=== PATIENT | male | born 1990 | race Two or more races ===

== ENCOUNTER 2018-04-03 00:16 | Observation (INO) ==
[2018-04-03] MEDS ORDERED: Gadobutrol PF 10 MMOL/10 ML Vial (for RAD) IV.SIG ONE (06:30)
[2018-04-03] MEDS ORDERED: Bisacodyl 10 MG Supp RECTAL PRN (06:34)
[2018-04-03] MEDS ORDERED: Acetaminophen 325 MG Tablet PO PRN (06:34)
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
[2018-04-03] MEDS: Sod Chloride 0.9% Inj 1,000 ML IV.CONT SCH ×2 (09:39→20:18)
[2018-04-03 11:17] LABS: Troponin I 0.1 ng/mL (0.02-0.05)
[2018-04-03 11:28] LABS: CKMB Percent 0.3 % (0.0-4.0); Creatine Kinase MB 1.9 ng/mL (0.5-3.6)
[2018-04-03] MEDS ORDERED: ALPRAZolam 0.25 MG Tablet PO ONE (13:00)
[2018-04-03] MEDS: Escitalopram 10 MG Tablet PO SCH (13:17)
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
--- NOTE | 2018-04-03 14:05 | ECHRPT ---
Indication: HEART FAILURE CONCLUSIONS Normal left ventricular size. Wall thickness is normal. The left ventricular systolic function is normal with an estimated ejection fraction in the range of 55-60%. No regional wall motion abnormalities are present. There is trace tricuspid valve regurgitation. BP: / HR: Rhythm: Sinus MEASUREMENTS (Male / Female) Normal Values Technical Quality:Fair 2D ECHO LV Diastolic Diameter PLAX 5.2 cm 4.2 - 5.9 / 3.9 - 5.3 cm LV Systolic Diameter PLAX 3.2 cm IVS Diastolic Thickness 1.1 cm 0.6 - 1.0 / 0.6 - 0.9 cm LVPW Diastolic Thickness 1.1 cm 0.6 - 1.0 / 0.6 - 0.9 cm LV Relative Wall Thickness 0.4 RV Internal Dim ED PLAX 2.5 cm LVOT Diameter 2.2 cm Aortic Root Diameter 3.0 cm LA Systolic Diameter LX 3.6 cm 3.0 - 4.0 / 2.7 - 3.8 cm M-MODE AV Cusp Separation MM 2.3 cm DOPPLER AV Peak Velocity 128.0 cm/s AV Peak Gradient 6.6 mmHg AV Mean Gradient 4.0 mmHg AV Velocity Time Integral 22.5 cm LVOT Peak Velocity 91.0 cm/s LVOT Peak Gradient 3.3 mmHg LVOT Velocity Time Integral 17.1 cm AV Area Cont Eq vti 2.9 cm AV Area Cont Eq pk 2.7 cm Mitral E Point Velocity 120.0 cm/s Mitral A Point Velocity 56.3 cm/s Mitral E to A Ratio 2.1 LV E' Lateral Velocity 17.4 cm/s Mitral E to LV E' Lateral Ratio 6.9 LV E' Septal Velocity 10.6 cm/s Mitral E to LV E' Septal Ratio 11.3 TR Peak Velocity 212.0 cm/s TR Peak Gradient 18.0 mmHg PV Peak Velocity 83.5 cm/s PV Peak Gradient 2.8 mmHg FINDINGS LEFT VENTRICLE Normal left ventricular size. Wall thickness is normal. The left ventricular systolic function is normal with an estimated ejection fraction in the range of 55-60%. No regional wall motion abnormalities are present. RIGHT VENTRICLE Normal right ventricular size and systolic function. LEFT ATRIUM The left atrial size is normal. RIGHT ATRIUM The right atrial size is normal. ATRIAL SEPTUM No atrial level shunt is demonstrated by color flow Doppler interrogation. AORTA The aortic root and proximal ascending aorta are normal in size on limited imaging. MITRAL VALVE Structurally normal mitral valve. No mitral valve stenosis or regurgitation. AORTIC VALVE Trileaflet aortic valve. No aortic valve stenosis or regurgitation. TRICUSPID VALVE There is trace tricuspid valve regurgitation. PULMONARY VALVE No pulmonary valve regurgitation or stenosis. VESSELS The inferior vena cava is normal in size. PERICARDIUM No pericardial effusion. Carmelo Chan MD (Electronically Signed) Final Date:03 April 2018 14:04
--- NOTE | 2018-04-03 15:18 | MR ---
EXAM DATE: 04/03/2018 2:59 PM EDT AGE/SEX: 28 years / Male INDICATIONS: Seizures. CLINICAL DATA: This is the patient's initial encounter. Patient reports that signs and symptoms have been present for 1 day and indicates a pain score of 0/10. MEDICAL/SURGICAL HISTORY: . . R Hip COMPARISON: No prior exams available for comparison. TECHNIQUE: Multiplanar, multisequence examination of the brain was performed without and with 10ml ml Gadavist (gadobutrol) contrast as a single exam dose. FINDINGS: Cerebrum: The ventricles are normal for age. No evidence of midline shift, mass lesion, hemorrhage or acute infarction. No extraaxial fluid collections are seen. The pituitary gland and suprasellar cistern are normal in configuration. White Matter: No significant signal abnormalities are seen in the white matter. Posterior Fossa: The cerebellum and brainstem are intact. The 4th ventricle is midline. The cerebel lopontine angle is unremarkable. The cerebellar tonsils are normal in position. Diffusion Imaging: No focal areas of restricted diffusion are seen. No evidence of acute infarction . Extracranial: The visualized portions of the orbits and paranasal sinuses are unremarkable. Post Contrast: No abnormal areas of parenchymal or dural enhancement. No evidence of blood-brain ba rrier breakdown. CONCLUSION: 1. Negative MRI of the brain without and with contrast 2. Do not see a seizure focus. Electronically signed by: Raghav Sampson MD 04/03/2018 3:17 PM EDT
[2018-04-03 18:30] LABS: Free T4 (Free Thyroxine) 1.42 ng/dL (0.76-1.46); Thyroid Stimulating Hormone 1.71 uIU/mL (0.358-3.740)
--- NOTE | 2018-04-03 21:18 | ECG ---
Date Performed: 04/03/2018 Time Performed: 09:55:29 PTAGE: 28 years EKG: Sinus rhythm NORMAL ECG Since the PREVIOUS TRACING , no significant change noted DOCTOR: Sammy Young Interpretating Date/Time 04/03/2018 21:17:12
[2018-04-04] MEDS: Sod Chloride 0.9% Inj 1,000 ML IV.CONT SCH (03:53)
[2018-04-04 05:42] LABS: Baso % (Auto) 0.2 % (0.0-2.0); Eos # (Auto) 0.3 th/mm3 (0.0-0.4); Eos % (Auto) 2.5 % (0.0-4.0); Hematocrit 30.6 % (39.0-51.0); Lymph # (Auto) 1.3 th/mm3 (1.0-4.8); Lymph % (Auto) 11.6 % (9.0-44.0); Mean Corpuscular HGB Conc 32.6 % (32.0-36.0); Mean Corpuscular Hemoglobin 25.4 pg (27.0-34.0); Mean Corpuscular Volume 77.9 fL (80.0-100.0); Mono # (Auto) 1.1 th/mm3 (0.0-0.9); Mono % (Auto) 9.8 % (0.0-8.0); Neut # (Auto) 8.2 th/mm3 (1.8-7.7); Neut % (Auto) 75.9 % (16.0-70.0); Platelet Count 280 th/mm3 (150-450); Red Blood Count 3.93 mil/mm3 (4.50-5.90); Red Cell Distribution Width 13.8 % (11.6-17.2); White Blood Count 10.9 th/mm3 (4.0-11.0)
[2018-04-04 05:58] LABS: Chloride 107 meq/L (98-107); Potassium 3.5 meq/L (3.5-5.1); Sodium 140 meq/L (136-145)
[2018-04-04 06:02] LABS: Anion Gap 9 meq/L (5-15); Calcium 8.3 mg/dL (8.5-10.1); Glucose,Random 93 mg/dL (74-106)
[2018-04-04 06:03] LABS: Blood Urea Nitrogen 9 mg/dL (7-18)
[2018-04-04 06:06] LABS: Glomerular Filtration Rate Greater Than 89 mL/min (>89)
[2018-04-04 06:09] LABS: Creatine Kinase 761 U/L (39-308)
[2018-04-04 06:30] LABS: CKMB Percent 0.1 % (0.0-4.0); Creatine Kinase MB 0.9 ng/mL (0.5-3.6)
--- NOTE | 2018-04-04 08:00 | P.PNNEU ---
Subjective Active Medications: Active Medications Acetaminophen (Tylenol) 650 mg PO Q4H PRN PRN Reason: Temp > 100.4 Last Admin: 04/03/18 20:27 Dose: 650 mg Al Hydroxide/Mg Hydroxide (Milk Of Angie Marques) 30 ml PO Q12H PRN PRN Reason: Mild Constipation Bacitracin (Baciguent Oint) 1 applicatio TOPICAL BID [facility] Last Admin: 04/03/18 20:18 Dose: 1 applicatio Bisacodyl (Dulcolax Supp) 10 mg RECTAL DAILY PRN PRN Reason: SEVERE CONSITIPATION Escitalopram Oxalate (Lexapro) 10 mg PO DAILY [facility] Last Admin: 04/03/18 13:17 Dose: 10 mg Sodium Chloride (Ns Inj) 1,000 mls @ 100 mls/hr IV.CONT .Q10H [facility] Last Admin: 04/04/18 03:53 Dose: 100 mls/hr Lorazepam (Ativan Inj) 2 mg IV.PUSH Q10M PRN PRN Reason: SEE LABEL COMMENTS Ondansetron HCl (Zofran Inj) 4 mg IV.PUSH Q6H PRN PRN Reason: NAUSEA OR VOMITING Sennosides (Senokot) 17.2 mg PO Q12H PRN PRN Reason: Moderate Constipation Allergies/Adverse Reactions: Allergies Allergy/AdvReac Type Severity Reaction Status Date / Time No Known Allergies Allergy Verified 04/03/18 00:31 Physical Exam Vital signs: Vital Signs 04/03/18 08:00 04/03/18 12:00 04/03/18 16:00 Temperature 97.2 F L 99.3 F 98.6 F Pulse Rate 83 87 76 Respiratory Rate 18 19 20 Blood Pressure 138/83 137/87 155/87 H Pulse Oximetry 97 97 96 04/03/18 20:00 04/04/18 00:00 04/04/18 04:00 Temperature 98.8 F 99.1 F 99.3 F Pulse Rate 75 79 73 Respiratory Rate 20 20 20 Blood Pressure 140/75 138/71 141/72 H Pulse Oximetry 98 96 97 Intake & Output 04/03/18 04/04/18 04/04/18 18:59 06:59 18:59 Intake Total 0 / 0 2960 / 2960 Balance 0 / 0 2960 / 2960 Weight 92.9 kg Intake: IV 1999 NS Inj 1,000 ML @ 100 mls/hr IV 1999 .CONT .Q10H BETO Rx#:[id number] Oral 0 / 0 960 / 960 Other: # Voids 10 # Bowel Movements 0 Objective Laboratory Results - last 24 hr 04/03/18 04/03/18 04/03/18 09:50 09:50 09:50 CBC w Diff WBC RBC Hgb Hct MCV MCH MCHC RDW Plt Count MPV Neut % (Auto) Lymph % (Auto) Parmer % (Auto) Eos % (Auto) Baso % (Auto) Neut # (Auto) Lymph # (Auto) Parmer # (Auto) Eos # (Auto) Baso # (Auto) WBC Differential Differential Comment ESR 66 H Sodium Potassium Chloride Carbon Dioxide Anion Gap BUN Creatinine Estimated GFR Random Glucose Calcium Total Creatine Kinase 661 H CK-MB (CK-2) 1.9 CK-MB (CK-2) % 0.3 Troponin I 0.10 H B-Natriuretic Peptide 120 H Vitamin B12 TSH Free T4 04/03/18 04/04/18 04/04/18 09:50 04:37 05:03 CBC w Diff Auto diff final WBC 10.9 RBC 3.93 L Hgb 10.0 L Hct 30.6 L MCV 77.9 L MCH 25.4 L MCHC 32.6 RDW 13.8 Plt Count 280 D MPV 8.0 Neut % (Auto) 75.9 H Lymph % (Auto) 11.6 Parmer % (Auto) 9.8 H Eos % (Auto) 2.5 Baso % (Auto) 0.2 Neut # (Auto) 8.2 H Lymph # (Auto) 1.3 Parmer # (Auto) 1.1 H Eos # (Auto) 0.3 Baso # (Auto) 0.0 WBC Differential . Differential Comment . ESR Sodium 140 Potassium 3.5 Chloride 107 Carbon Dioxide 24.0 Anion Gap 9 BUN 9 Creatinine 0.86 Estimated GFR Greater than 89 Random Glucose 93 Calcium 8.3 L Total Creatine Kinase 761 H CK-MB (CK-2) 0.9 CK-MB (CK-2) % 0.1 Troponin I B-Natriuretic Peptide Vitamin B12 635 TSH 1.710 Free T4 1.42 Review/Management - Review/Management Plan: i dw nurse no new sz did not sleep [facility] ? from withdrawal i gave him a bid dose xanax but would not want this taken care home also on lexapro if eeg neg can dc labs and mri neg echo nl
--- NOTE | 2018-04-04 09:01 | P.PN ---
Subjective Interval history: Follow up new onset seizure, chest pain. Patient seen and examined, lying in bed comfortably in [facility]. technician inventory specialist performing exam. Patient's CPK actually increased today. Will continue IV fluids encourage p.o. intake as well as given 1 L bolus. Denies any chest pain. Vital signs stable. Afebrile. Labs stable. Physical Exam Vital signs: Vital Signs 04/03/18 12:00 04/03/18 16:00 04/03/18 20:00 Temperature 99.3 F 98.6 F 98.8 F Pulse Rate 87 76 75 Respiratory Rate 19 20 20 Blood Pressure 137/87 155/87 H 140/75 Pulse Oximetry 97 96 98 04/04/18 00:00 04/04/18 04:00 04/04/18 08:44 Temperature 99.1 F 99.3 F 99.3 F Pulse Rate 79 73 87 Respiratory Rate 20 20 14 Blood Pressure 138/71 141/72 H 139/79 Pulse Oximetry 96 97 98 Intake & Output 04/03/18 04/04/18 04/04/18 18:59 06:59 18:59 Intake Total 0 / 0 2960 / 2960 Balance 0 / 0 2960 / 2960 Weight 92.9 kg Intake: IV 1999 NS Inj 1,000 ML @ 100 mls/hr IV 1999 .CONT .Q10H BETO Rx#:[id number] Oral 0 / 0 960 / 960 Other: # Voids 10 # Bowel Movements 0 Narrative: GENERAL: Well-developed, well-nourished patient in [facility]. SKIN: Warm and dry. No rash. Mouth sores secondary to previous intubation and tape. HEAD: Normocephalic. Atraumatic. EYES: Pupils equal and round. No scleral icterus. No injection or drainage. ENT: No nasal bleeding or discharge. Mucous membranes pink and moist. NECK: Supple. Trachea midline. CARDIOVASCULAR: Regular rate and rhythm. S1, S2 noted. No murmur appreciated. RESPIRATORY: No accessory muscle use. Clear to auscultation. Breath sounds equal bilaterally. GASTROINTESTINAL: Abdomen soft, non-tender, nondistended. Normoactive bowel sounds x4. MUSCULOSKELETAL: No obvious deformities. Extremities without clubbing, cyanosis , or edema. NEUROLOGICAL: Awake and alert. No obvious cranial nerve deficits. Motor grossly within normal limits. 5/5 muscle strength in bilateral upper and lower extremities. Normal speech. PSYCHIATRIC: Appropriate mood and affect; insight and judgment normal. Results - Labs CBC & Chem 7: 04/04/18 05:03 04/04/18 04:37 Laboratory Results - last 24 hr 04/03/18 04/03/18 04/03/18 09:50 09:50 09:50 CBC w Diff WBC RBC Hgb Hct MCV MCH MCHC RDW Plt Count MPV Neut % (Auto) Lymph % (Auto) Smith % (Auto) Eos % (Auto) Baso % (Auto) Neut # (Auto) Lymph # (Auto) Smith # (Auto) Eos # (Auto) Baso # (Auto) WBC Differential Differential Comment ESR 66 H Sodium Potassium Chloride Carbon Dioxide Anion Gap BUN Creatinine Estimated GFR Random Glucose Calcium Total Creatine Kinase 661 H CK-MB (CK-2) 1.9 CK-MB (CK-2) % 0.3 Troponin I 0.10 H B-Natriuretic Peptide 120 H Vitamin B12 TSH Free T4 04/03/18 04/04/18 04/04/18 09:50 04:37 05:03 CBC w Diff Auto diff final WBC 10.9 RBC 3.93 L Hgb 10.0 L Hct 30.6 L MCV 77.9 L MCH 25.4 L MCHC 32.6 RDW 13.8 Plt Count 280 D MPV 8.0 Neut % (Auto) 75.9 H Lymph % (Auto) 11.6 Smith % (Auto) 9.8 H Eos % (Auto) 2.5 Baso % (Auto) 0.2 Neut # (Auto) 8.2 H Lymph # (Auto) 1.3 Smith # (Auto) 1.1 H Eos # (Auto) 0.3 Baso # (Auto) 0.0 WBC Differential . Differential Comment . ESR Sodium 140 Potassium 3.5 Chloride 107 Carbon Dioxide 24.0 Anion Gap 9 BUN 9 Creatinine 0.86 Estimated GFR Greater than 89 Random Glucose 93 Calcium 8.3 L Total Creatine Kinase 761 H CK-MB (CK-2) 0.9 CK-MB (CK-2) % 0.1 Troponin I B-Natriuretic Peptide Vitamin B12 635 TSH 1.710 Free T4 1.42 - Imaging Impressions Head MRI 04/03/18 00:00 CONCLUSION: 1. Negative MRI of the brain without and with contrast 2. Do not see a seizure focus. Assessment and Plan - Assessment (1) Atypical chest pain Code(s): R07.89 - Other chest pain Status: Resolved Plan: Resolved. Patient has been admitted to the observation unit for chest pain. Serial EKGs and serial troponins have been ordered for ruling out ACS purposes. Troponins flat. EKG reviewed showing no ST changes to indicate any ischemia. Continue on cardiac telemetry, monitor for any arrhythmias. No arrhythmias were noted overnight. Chest x-ray reviewed showing no acute cardiopulmonary disease. Elevated d-dimer upon presentation 1.5. Chest CTA was done showing no PE. There was some small bilateral scattered ground-glass infiltrates with tiny bilateral pleural effusions. BNP mildly elevated. ECHO acute findings, adequate EF. CBC showing some anemia, will continue to monitor. Stable today. BMP essentially unremarkable. (2) Rhabdomyolysis Code(s): M62.82 - Rhabdomyolysis Status: Acute Plan: CPK elevated upon presentation. Continue IVF. Encourage PO intake. Monitor CPK levels. Mildly elevated today. Will give 1 L bolus. Continue to monitor. (3) Increasing frequency of seizure activity Code(s): R56.9 - Unspecified convulsions Status: Inactive Plan: Supposedly patient a generalized tonic clonic seizure in the ED. Lasted 30 seconds followed by a postictal state. Supportive care. Seizure precautions. EEG ordered and pending. Ativan ordered as needed. MRI of the brain unremarkable. Neurology following. (4) Substance abuse Code(s): F19.10 - Other psychoactive substance abuse, uncomplicated Status: Acute Plan: Tox screen negative. Encouraged cessation. Admits to alcohol abuse. Will go to [facility] after discharge. Added Lexapro per neurology. (5) Elevated LFTs Code(s): R94.5 - Abnormal results of liver function studies Status: Acute Plan: Mildly elevated LFTs. encouraged alcohol cessation. Will continue to monitor. Denies any abdominal pain. Denies any nausea or vomiting. - Plan Discharge Planning: Awaiting clinical improvement of CPK levels. Also EEG pending.
[2018-04-04] MEDS ORDERED: Sod Chloride 0.9% Inj 1,000 ML IV.SIG ONE (09:06)
[2018-04-04] MEDS: ALPRAZolam 0.25 MG Tablet PO SCH ×2 (09:32→21:25)
[2018-04-04] MEDS: Escitalopram 10 MG Tablet PO SCH (09:33)
[2018-04-04 14:57] LABS: CKMB Percent 0.1 % (0.0-4.0); Creatine Kinase MB 0.9 ng/mL (0.5-3.6)
--- NOTE | 2018-04-04 22:04 | MG ---
cc: Jef Alvarez MD [id number] Alpha activity of 8-9 Hz, well-formed. Good anterior to posterior gradient. Equal eye movement artifact, produced driving with photic stimulation. Good EEG variability and reactivity. Background slowing and slow eye movements suggestive of drowsy state, felt like vertex waves and spindles with transition to stage I and stage II sleep. Occasional hand twitch. No epileptic correlation. INTERPRETATION: Normal awake sleep electroencephalogram. Clinical correlation. MD RICHY Pereira/helen , 09:45 PM , 09:49 PM
[2018-04-05] MEDS: Sod Chloride 0.9% Inj 1,000 ML IV.CONT SCH ×2 (06:23→06:24)
== END 2018-04-05 10:52 | disposition home or self-care (01) ==
LOC: PHEDDLT 06:28 → PH3 06:28
PROVIDERS: ADMIT Internal Medicine; ATTEND Internal Medicine